=== PATIENT | female | born 2005 | race Hispanic/Latino ===

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

== ENCOUNTER 2023-05-08 07:39 | Outpatient (CLI) | payer OTHER | END 2023-05-08 07:40 | disposition home or self-care (01) | LOC: BURRAD 07:39 | PROVIDERS: ATTEND Physician Assistant | DX: M40.202 Unspecified kyphosis, cervical region (principal) | CPT/HCPCS: 72040 ==

== ENCOUNTER 2023-12-28 12:41 | Emergency (ER) | payer SELFPAY | END 2023-12-28 13:49 | disposition home or self-care (01) | LOC: BURERS 12:41 | DX: K52.9 Noninfective gastroenteritis and colitis, unspecified (principal); R11.2 Nausea with vomiting, unspecified | CPT/HCPCS: 99283 ==